=== PATIENT | male | born 1950 | race Caucasian/White ===

== ENCOUNTER 2018-01-22 15:05 | Inpatient (IN) | payer MEDICARE ==
[~2018-01-22] VITALS: Ht 185.4 cm; Wt 95.3 kg
--- NOTE | ~2018-01-22 | MORECARE ---
CASE MANAGEMENT DISCHARGE SUMMARY PATIENT: HUBERT YADAV UNIT: [id number] ADM DATE: 01/22/18 AGE: 67 : 50 SEX: M ROOM/BED: D.1209 AUTHOR: EVONNE BLACKBURN PHYSICIAN: REFERRING PHYSICIAN: MARIAJOSE SILVER MD DATE OF SERVICE: 01/25/18 Discharge Plan Patient Name: HUBERT YADAV [facility] [facility] 1950 Planned Disposition: Home Anticipated Discharge Date: Discharge Date: Expected LOS: Initial Reviewer: [email or web address] Initial Review Date: 01/22/2018 Generated: 01/25/18 3:23 pm DCPIA - Discharge Planning Initial Assessment Updated by [email or web address]: Surekha Pichardo on 01/25/18 2:14 pm * Is the patient Alert and Oriented? Yes * How many steps to enter\exit or inside your home? 2-3 * PCP no PCP just moved into area * Pharmacy [facility] / [facility] * Preadmission Environment Home Alone * ADLs Independent * Equipment None * List name and contact numbers for known caregivers / representatives who currently or will assist patient after discharge: Cam garcia son [phone] Vic Yadav son [phone] Estrada Yadav son [phone] * Verbal permission to speak to the caregivers and representatives has been obtained from the patient. N/A * Community resources currently utilized None * Additional services required to return to the preadmission environment? No * Can the patient safely return to the preadmission environment? Yes * Has this patient been hospitalized within the prior 30 days at any hospital? No Last DP export: 01/25/18 1:14 Patient Name: HUBERT YADAV Page 80685 at 1423 All edits/amendments must be made on the electronic document DICTATION DATE: 01/25/181421 HYDROLOGY PROFESSOR: ANIBAL 01/25/181421 RPT#: [id number] DC DATE: STATUS: ADM IN [facility] [address] [place] [address] END OF REPORT
--- NOTE | ~2018-01-22 | MORECARE ---
CASE MANAGEMENT DISCHARGE SUMMARY PATIENT: HUBERT YADAV UNIT: [id number] ADM DATE: 01/22/18 AGE: 67 : 50 SEX: M ROOM/BED: D.1209 AUTHOR: EVONNE BLACKBURN PHYSICIAN: REFERRING PHYSICIAN: MARIAJOSE SILVER MD DATE OF SERVICE: 01/25/18 Discharge Plan Patient Name: HUBERT YADAV [facility] [facility] 1950 Planned Disposition: Home Anticipated Discharge Date: Discharge Date: Expected LOS: Initial Reviewer: [email or web address] Initial Review Date: 01/22/2018 Generated: 01/25/18 3:14 pm DCPIA - Discharge Planning Initial Assessment Updated by [email or web address]: Surekha Pichardo on 01/25/18 2:11 pm * Is the patient Alert and Oriented? Yes * How many steps to enter\exit or inside your home? 2-3 * PCP no PCP just moved into area * Pharmacy [facility] / [facility] * Preadmission Environment Home Alone * ADLs Independent * Equipment None * List name and contact numbers for known caregivers / representatives who currently or will assist patient after discharge: Cam garcia son [phone] Vic Yadav son [phone] Estrada Yadav son [phone] * Verbal permission to speak to the caregivers and representatives has been obtained from the patient. N/A * Community resources currently utilized None * Additional services required to return to the preadmission environment? No * Can the patient safely return to the preadmission environment? Yes * Has this patient been hospitalized within the prior 30 days at any hospital? No Last DP export: 01/25/18 1:03 Patient Name: HUBERT YADAV Page 97572 at 1414 All edits/amendments must be made on the electronic document DICTATION DATE: 01/25/181412 DYE AUTOMATION OPERATOR: ANIBAL 01/25/181412 RPT#: [id number] DC DATE: STATUS: ADM IN [facility] [address] [place] [address] END OF REPORT
--- NOTE | ~2018-01-22 | MORECARE ---
CASE MANAGEMENT DISCHARGE SUMMARY PATIENT: HUBERT YADAV UNIT: [id number] ADM DATE: 01/22/18 AGE: 67 : 50 SEX: M ROOM/BED: D.1209 AUTHOR: ALEXEY,DOC PHYSICIAN: REFERRING PHYSICIAN: MARIAJOSE SILVER MD DATE OF SERVICE: 01/26/18 Discharge Plan Patient Name: HUBERT YADAV Facility: [facility]:[place] : 1950 Planned Disposition: Home Anticipated Discharge Date: Discharge Date: 01/26/2018 Expected LOS: Initial Reviewer: [email or web address] Initial Review Date: 01/22/2018 Generated: 01/26/18 10:07 pm Comments DCP- Discharge Planning Updated by [email or web address]: Surekha Pichardo on 01/25/18 1:[address] Patient Name: HUBERT YADAV Admission Status: ER Accout number: [id number] Admission Date: 01-22-2018 : 1950 Admission Diagnosis: Attending: MARIAJOSE SILVER Current LOS: 3 Anticipated DC Date: Planned Disposition: Home Primary Insurance: MEDICARE PART A ONLY Discharge Planning Comments: CM met with patient at bedside he has requested to go home and have outpatient rehab. CM contacted [facility] and spoke with Zita and faxed records. CM called Zita at [facility] to make she had received fax [phone]. She stated that she did and she would be contacting patient to set up appointment. CM relayed message to patient and gave paper with Facility name and address and contact number. [facility] , [address] [phone] (Zita). CM printed map and directions to [facility] for patient. Patient denies any discharge needs. IMM explained and served at 01/25/18 @ 2312. CM will continue to follow and assist with discharge planning / needs. CM did contact Faby with [facility] that patient is requesting outpatient services. Commercial Title Examiner: Surekha Pichardo DCPIA - Discharge Planning Initial Assessment Updated by [email or web address]: Surekha Pichardo on 01/25/18 2:14 pm * Is the patient Alert and Oriented? Yes * How many steps to enter\exit or inside your home? 2-3 * PCP no PCP just moved into area * Pharmacy [facility] / * Preadmission Environment Home Alone * ADLs Independent * Equipment None * List name and contact numbers for known caregivers / representatives who currently or will assist patient after discharge: Cam garcia son [phone] Vic Yadav son [phone] Estrada Yadav son [phone] * Verbal permission to speak to the caregivers and representatives has been obtained from the patient. N/A * Community resources currently utilized None * Additional services required to return to the preadmission environment? No * Can the patient safely return to the preadmission environment? Yes * Has this patient been hospitalized within the prior 30 days at any hospital? No Coverage Notice Reviewer: [email or web address] Syd Pichardo Notice Issued Date-Time: 01/25/2018 13:33 Notice Type: IM Discharge Notice Notice Delivered To: Patient Relationship to Patient: Self Emergency Crew Supervisor Name: Delivery Method: HAND - Hand Delivered Dorothy Days: Prior Verbal Notification: Recipient Understood Notice: Yes Recipient Signature: Yes Med Rec Note Co-signed by Attending: Coverage Notice Comment: Last DP export: 01/25/18 1:49 Patient Name: HUBERT YADAV Page 28453 at 2107 All edits/amendments must be made on the electronic document DICTATION DATE: 01/26/182106 ELECTRIC POWER LINE REPAIRER: ANIBAL 01/26/182106 RPT#: [id number] DC DATE:01/26/18 STATUS: DIS IN [facility] [address] [place] [address] END OF REPORT
--- NOTE | ~2018-01-22 | MORECARE ---
CASE MANAGEMENT DISCHARGE SUMMARY PATIENT: HUBERT JOHN UNIT: [id number] ADM DATE: 01/22/18 AGE: 67 : 50 SEX: M ROOM/BED: D.1209 AUTHOR: EVONNE BLACKBURN PHYSICIAN: REFERRING PHYSICIAN: MARIAJOSE SILVER MD DATE OF SERVICE: 01/25/18 Discharge Plan Patient Name: HUBERT JOHN [facility] [facility] 1950 Planned Disposition: Home Anticipated Discharge Date: Discharge Date: Expected LOS: Initial Reviewer: [email or web address] Initial Review Date: 01/22/2018 Generated: 01/25/18 3:03 pm External Providers External Provider: Ji Payne PT Next Contact Date: Service Request Date: Service Type: Resolution: Reviewer: Comments: Patient Name: HUBERT JOHN Page 71819 at 1403 All edits/amendments must be made on the electronic document DICTATION DATE: 01/25/18 140 OFFICE SUPERVISOR: ANIBAL 01/25/18 1402 RPT#: [id number] DC DATE: STATUS: ADM IN [facility] [address] [place] [address] END OF REPORT
--- NOTE | ~2018-01-22 | MORECARE ---
CASE MANAGEMENT DISCHARGE SUMMARY PATIENT: HUBERT YADAV UNIT: [id number] ADM DATE: 01/22/18 AGE: 67 : 50 SEX: M ROOM/BED: D.1209 AUTHOR: ALEXEY,DOC PHYSICIAN: REFERRING PHYSICIAN: MARIAJOSE SILVER MD DATE OF SERVICE: 01/25/18 Discharge Plan Patient Name: HUBERT YADAV Facility: [facility]:[place] : 1950 Planned Disposition: Home Anticipated Discharge Date: Discharge Date: Expected LOS: Initial Reviewer: [email or web address] Initial Review Date: 01/22/2018 Generated: 01/25/18 3:49 pm Comments DCP- Discharge Planning Updated by [email or web address]: Surekha Pichardo on 01/25/18 1:[address] Patient Name: HUBERT YADAV Admission Status: ER Accout number: [id number] Admission Date: 01-22-2018 : 1950 Admission Diagnosis: Attending: MARIAJOSE SILVER Current LOS: 3 Anticipated DC Date: Planned Disposition: Home Primary Insurance: MEDICARE PART A ONLY Discharge Planning Comments: CM met with patient at bedside he has requested to go home and have outpatient rehab. CM contacted [facility] and spoke with Zita and faxed records. CM called Zita at [facility] to make she had received fax [phone]. She stated that she did and she would be contacting patient to set up appointment. CM relayed message to patient and gave paper with Facility name and address and contact number. [facility] , [address] [phone] (Zita). CM printed map and directions to [facility] for patient. Patient denies any discharge needs. IMM explained and served at 01/25/18 @ 9972. CM will continue to follow and assist with discharge planning / needs. CM did contact Fayb with [facility] that patient is requesting outpatient services. Polysomnographic Tech: Surekha Pichardo DCPIA - Discharge Planning Initial Assessment Updated by [email or web address]: Surekha Pichardo on 01/25/18 2:14 pm * Is the patient Alert and Oriented? Yes * How many steps to enter\exit or inside your home? 2-3 * PCP no PCP just moved into area * Pharmacy [facility] / * Preadmission Environment Home Alone * ADLs Independent * Equipment None * List name and contact numbers for known caregivers / representatives who currently or will assist patient after discharge: Cam garcia son [phone] Vic Yadav son [phone] Estrada Yadav son [phone] * Verbal permission to speak to the caregivers and representatives has been obtained from the patient. N/A * Community resources currently utilized None * Additional services required to return to the preadmission environment? No * Can the patient safely return to the preadmission environment? Yes * Has this patient been hospitalized within the prior 30 days at any hospital? No Last DP export: 01/25/18 1:23 Patient Name: HUBERT YADAV Page 13393 at 1449 All edits/amendments must be made on the electronic document DICTATION DATE: 01/25/181447 PROGRESSIVE CARE NURSE: ANIBAL 01/25/181447 RPT#: [id number] DC DATE: STATUS: ADM IN [facility] [address] [place] [address] END OF REPORT
--- NOTE | ~2018-01-22 | EC ---
PATIENT:HUBERT JOHN DATE OF SERVICE: 01/22/18 SEX: M MEDICAL RECORD: [id number] DATE OF : [birth year] LOCATION:D.M3 D.120 AGE OF PATIENT: 67 ADMISSION DATE: 01/22/18 REFERRING PHYSICIAN: INTERPRETING PHYSICIAN: SABRA YOON MD ECHOCARDIOGRAM REPORT ECHO CHARGES 4 ECHO COMPLETE Date: 01/23/18 CLINICAL DIAGNOSIS: CHF ECHOCARDIOGRAPHIC MEASUREMENTS (adult normal given) AC root (d.<3.7cm) 4.6 cm LV Septum d (<1.2 cm> 1.6 cm Valve Excursion 1.3 cm LV Septum (systole) 1.3 cm Left Atria (s.<4.0cm> 3.8 cm LVPW d(<1.2cm) 1.3 cm RV (d.<2.3cm) 4.2 cm LVPW (sytole) 1.8 cm LV diastole(<5.6CM) 4.8 cm MV E-F(>70mm/sec) cm LV systole 3.8 cm LVOT Diameter 2.2 cm MV exc.(>10mm) 1.2 cm Est.ejection fraction (50-75%) % DOPPLER: LVIT cm/sec A 98.0 cm/sec E 77.0 cm/sec LA cm/sec RVSP 25 mmHg LVOT 109 cm/sec AOP1/2T m/s Asc. Ao 139 cm/sec RVOT 86 cm/sec RA cm/sec PA 122 cm/sec AV Gradient Peak 7.70 mmHg AV Mean 4.57 mmHg AV Area 3.0 cm MV Gradient Peak 5.69 mmHg MV Mean 2.14 mmHg MV Area cm COMMENTS: Lace Finisher: 2 MATEO CASTILLO Ssn/Ssbn Weapons Equipment Operator: 4 Dr. Yoon TAPE# PACS Pericardial Effusion N DATE OF SERVICE: REFERRING PHYSICIAN: Transthoracic echocardiogram. FINDINGS: 1. There is concentric left ventricular hypertrophy, ejection fraction 65% to 70%. 2. The right ventricle is mildly dilated. 3. The left atrium is normal size and function. 4. Aortic valve is normal. ECHOCARDIOGRAM REPORT [id number] HUBERT JOHN 5. The mitral valve is normal. 6. The tricuspid valve has trace tricuspid regurgitation. 7. The pericardium is normal. 8. The right atrium is normal. 9. The pulmonic valve is normal. CONCLUSIONS: For the patient's stated age, this is a normal echocardiogram with the exception of inflow characteristics consistent with diastolic dysfunction, evidence of left ventricular hypertrophy, which in total likely represents mild hypertensive heart disease. TRANSINT:[id number] Voice Confirmation ID: [id number] DOCUMENT ID: [id number] SABRA YOON MD CC: [id number] DICTATION DATE: 01/24/18 1038 TUMBLER PLATER: 01/24/18 1101 ADM IN [facility] [address] [place] [address]
[2018-01-22 15:45] VITALS: BP 175/97
[2018-01-22 15:48] LABS: BASOPHILS 0.3 % (0-2); EOSINOPHILS 2.8 % (0-7); HEMATOCRIT 43.1 % (42.0-54.0); HEMOGLOBIN 14.6 g/dL (13.5-17.5); IMMATURE GRANULOCYTES 0.1 % (0-5); LYMPHOCYTES 23.3 % (15-50); MCH 30.6 pg (26.0-34.0); MCHC 33.9 g/dL (31.0-37.0); MCV 90.4 fL (80.0-100.0); MEAN PLATELET VOLUME 9.9 fL (7.4-10.4); MONOCYTES 10.1 % (2-11); NEUTROPHILS 63.4 % (40-80); PLATELET COUNT 170 10x3/uL (130-400); RBC 4.77 10x6/uL (4.20-6.10); RDW 13.4 % (11.5-14.5); WBC 8.6 10x3/uL (4.8-10.8)
[2018-01-22 15:56] LABS: PROTIME 12.7 SECONDS (11.6-15.0)
[2018-01-22 16:04] LABS: ALBUMIN 3.5 g/dL (3.4-5.0); ALKALINE PHOSPHATASE 84 U/L (46-116); ALT (SGPT) 23 U/L (10-68); CALC OSMOLALITY 281 mosm/kg (275-300); CALCIUM 8.8 mg/dL (8.5-10.1); CARBON DIOXIDE 28.2 mmol/L (21.0-32.0); CHLORIDE - SERUM 102 mmol/L (98-107); CREATININE - SERUM 0.8 mg/dL (0.6-1.3); GLUCOSE 122 mg/dL (74-106); PROTEIN - SERUM 7.1 g/dL (6.4-8.2); SODIUM 140 mmol/L (136-145); UREA NITROGEN 17 mg/dL (7-18); eGFR NON AFRICAN AMERICAN > 90 mL/min (90-120)
[2018-01-22 16:15] VITALS: BP 188/99
[2018-01-22 18:21] VITALS: BP 185/104; BMI 27.7
[2018-01-22 19:47] VITALS: BP 163/82
[2018-01-23] VITALS: BP 151/85
[2018-01-23 04:00] VITALS: BP 147/93
[2018-01-23 07:09] VITALS: BP 191/113
[2018-01-23 10:52] VITALS: BP 181/98
[2018-01-23 14:53] VITALS: BP 161/80
[2018-01-23 18:58] VITALS: BP 160/79
[2018-01-24 00:06] VITALS: BP 144/78
[2018-01-24 04:00] VITALS: BP 137/76
[2018-01-24 06:21] LABS: BASOPHILS 0.1 % (0-2); EOSINOPHILS 3.4 % (0-7); HEMATOCRIT 42.5 % (42.0-54.0); HEMOGLOBIN 14.2 g/dL (13.5-17.5); IMMATURE GRANULOCYTES 0.3 % (0-5); LYMPHOCYTES 23.7 % (15-50); MCH 30.5 pg (26.0-34.0); MCHC 33.4 g/dL (31.0-37.0); MCV 91.4 fL (80.0-100.0); MEAN PLATELET VOLUME 9.9 fL (7.4-10.4); MONOCYTES 10.1 % (2-11); NEUTROPHILS 62.4 % (40-80); PLATELET COUNT 175 10x3/uL (130-400); RBC 4.65 10x6/uL (4.20-6.10); RDW 13.8 % (11.5-14.5); WBC 7.1 10x3/uL (4.8-10.8)
[2018-01-24 06:41] LABS: CALC OSMOLALITY 279 mosm/kg (275-300); CALCIUM 8.5 mg/dL (8.5-10.1); CARBON DIOXIDE 28.1 mmol/L (21.0-32.0); CHLORIDE - SERUM 104 mmol/L (98-107); CHOL - HDL RATIO 4.6 ratio (2.3-4.9); CHOLESTEROL, TOTAL 165 mg/dL (0-200); CREATININE - SERUM 0.7 mg/dL (0.6-1.3); GLUCOSE 103 mg/dL (74-106); HDL CHOLESTEROL 36 mg/dL (32-96); LDL CHOLESTEROL 111 mg/dL (0-100); LDL-HDL RATIO 3.1 ratio (1.5-3.5); POTASSIUM - SERUM 3.5 mmol/L (3.5-5.1); SODIUM 140 mmol/L (136-145); TRIGLYCERIDE 91 mg/dL (30-200); UREA NITROGEN 15 mg/dL (7-18); eGFR NON AFRICAN AMERICAN > 90 mL/min (90-120)
[2018-01-24 07:43] VITALS: BP 146/88
[2018-01-24 12:52] VITALS: BP 166/88
[2018-01-24 15:38] VITALS: Ht 185.4 cm; Wt 95.3 kg
[2018-01-24 16:00] VITALS: BP 152/74
[2018-01-24 20:00] VITALS: BP 119/68
[2018-01-25 00:30] VITALS: BP 146/83
[2018-01-25 07:10] LABS: BASOPHILS 0.1 % (0-2); EOSINOPHILS 4.4 % (0-7); HEMATOCRIT 42.8 % (42.0-54.0); HEMOGLOBIN 14.3 g/dL (13.5-17.5); IMMATURE GRANULOCYTES 0.3 % (0-5); LYMPHOCYTES 23.8 % (15-50); MCH 30.7 pg (26.0-34.0); MCHC 33.4 g/dL (31.0-37.0); MCV 91.8 fL (80.0-100.0); MEAN PLATELET VOLUME 10.1 fL (7.4-10.4); MONOCYTES 10.3 % (2-11); NEUTROPHILS 61.1 % (40-80); PLATELET COUNT 165 10x3/uL (130-400); RBC 4.66 10x6/uL (4.20-6.10); RDW 13.7 % (11.5-14.5); WBC 7.1 10x3/uL (4.8-10.8)
[2018-01-25 07:13] LABS: CALC OSMOLALITY 279 mosm/kg (275-300); CALCIUM 8.6 mg/dL (8.5-10.1); CARBON DIOXIDE 30.7 mmol/L (21.0-32.0); CHLORIDE - SERUM 104 mmol/L (98-107); CREATININE - SERUM 0.7 mg/dL (0.6-1.3); GLUCOSE 98 mg/dL (74-106); POTASSIUM - SERUM 3.7 mmol/L (3.5-5.1); SODIUM 140 mmol/L (136-145); UREA NITROGEN 14 mg/dL (7-18); eGFR NON AFRICAN AMERICAN > 90 mL/min (90-120)
[2018-01-25 08:47] VITALS: BP 158/87
[2018-01-25 12:49] VITALS: BP 150/95
[2018-01-25] MEDS ORDERED: LIPITOR20 MG PO ×2 (14:12→14:39)
[2018-01-25] MEDS ORDERED: LISINOPRIL10 MG PO (14:12)
[2018-01-25] MEDS ORDERED: NORVASC5 MG PO (14:12)
[2018-01-25] MEDS ORDERED: ASPIRIN325 MG PO (14:13)
[2018-01-25 16:57] VITALS: BP 160/87
[2018-01-25 20:00] VITALS: BP 149/72
[2018-01-26] VITALS: BP 166/98
[2018-01-26 04:00] VITALS: BP 171/85
[2018-01-26 07:46] LABS: BASOPHILS 0.3 % (0-2); EOSINOPHILS 3.8 % (0-7); HEMATOCRIT 44.1 % (42.0-54.0); HEMOGLOBIN 14.8 g/dL (13.5-17.5); IMMATURE GRANULOCYTES 0.1 % (0-5); LYMPHOCYTES 23.7 % (15-50); MCH 30.7 pg (26.0-34.0); MCHC 33.6 g/dL (31.0-37.0); MCV 91.5 fL (80.0-100.0); NEUTROPHILS 61.1 % (40-80); PLATELET COUNT 168 10x3/uL (130-400); RBC 4.82 10x6/uL (4.20-6.10); RDW 13.7 % (11.5-14.5); WBC 7.6 10x3/uL (4.8-10.8)
[2018-01-26 07:56] LABS: CALC OSMOLALITY 279 mosm/kg (275-300); CALCIUM 8.5 mg/dL (8.5-10.1); CARBON DIOXIDE 28.6 mmol/L (21.0-32.0); CHLORIDE - SERUM 105 mmol/L (98-107); CREATININE - SERUM 0.7 mg/dL (0.6-1.3); GLUCOSE 93 mg/dL (74-106); POTASSIUM - SERUM 3.6 mmol/L (3.5-5.1); SODIUM 140 mmol/L (136-145); UREA NITROGEN 14 mg/dL (7-18); eGFR NON AFRICAN AMERICAN > 90 mL/min (90-120)
[2018-01-26 08:04] VITALS: BP 167/86
== END 2018-01-26 10:25 | disposition home or self-care (01) | DRG 65 ==
LOC: D.ER 15:05 → D.M3 17:11 → D.EDHOLD 17:11 → D.M3 17:39
PROVIDERS: Emergency Medicine; Internal Medicine Nephrology
DX: I63.9 Cerebral infarction, unspecified (principal); G81.94 Hemiplegia, unspecified affecting left nondominant side; R29.810 Facial weakness; I10 Essential (primary) hypertension; E87.6 Hypokalemia; R40.2363 Coma scale, best motor response, obeys commands, at hospital admission; R40.2143 Coma scale, eyes open, spontaneous, at hospital admission; R40.2253 Coma scale, best verbal response, oriented, at hospital admission